=== PATIENT | female | born 1960 | race African-American/Black ===

== ENCOUNTER 2025-02-15 18:15 | Emergency (ER) | payer OTHER ==
[~2025-02-15] VITALS: Ht 165.1 cm; Wt 75.0 kg
[2025-02-15 18:25] VITALS: O2SAT 98
[2025-02-15 18:40] VITALS: TEMP 36.6
[2025-02-15] MEDS ORDERED: NALO4SPR BOTHNSTRLS (21:03)
[2025-02-15 21:30] VITALS: BP 166/100; PULSE 86; RESP 11; O2SAT 99
== END 2025-02-15 21:56 | disposition home or self-care (01) ==
LOC: ER 18:15
DX: T40.2X1A Poisoning by other opioids, accidental (unintentional), initial encounter (principal); J45.909 Unspecified asthma, uncomplicated; I10 Essential (primary) hypertension; Z79.899 Other long term (current) drug therapy; Y92.89 Other specified places as the place of occurrence of the external cause
CPT/HCPCS: 99283